=== PATIENT | female | born 1980 | race Hispanic/Latino ===

== ENCOUNTER 2022-03-14 19:55 | Emergency (ER) | payer OTHER, SELFPAY ==
[2022-03-14 21:24] LABS: #Basophils 0.1 10x3/uL (0.0-0.2); #Eosinphils 0.2 10x3/uL (0.0-0.5); #Neutrophils 11.7 10x3/uL (1.5-8.4); %Basophils 0.4 % (0.0-2.0); %Eosinophils 1.5 % (0.0-6.0); %Lymphocytes 15.7 % (18.0-47.0); %Monocytes 6.5 % (0.0-10.0); %Neutrophils 75.4 % (40.0-75.0); Hemoglobin 12.5 g/dL (12.0-15.5); Mean Corpuscular HGB CONC 33.8 g/dL (32.0-36.0); Mean Corpuscular Volume 85.8 fl (81.6-98.3); Mean Platelet Volume 10.1 fl (7.4-10.4); Platelet Count 335 10x3/uL (150-450); RBC Distribution Width 13.9 % (11.5-14.5); Red Blood Cell (RBC) Count 4.31 10x6/uL (3.90-5.03); White Blood Cell (WBC) Count 15.6 10x3/uL (3.5-10.5)
[2022-03-14 21:31] LABS: BHCG - Serum Negative (NEGATIVE); Pregs Control Background? CLEAR/WHITE (CLR/WHITE); Pregs Control Bar Appear? YES (CONTROL BAR)
[2022-03-14 21:39] LABS: ALT (SGPT) 22 U/L (8-55); AST (SGOT) 22 U/L (5-34); Albumin 4.6 g/dL (3.5-5.0); Alkaline Phosphatase 99 U/L (40-110); Anion Gap 17 mmol/L (10-20); BUN (Urea Nitrogen) 19 mg/dL (7.0-18.7); Bilirubin, Total 0.5 mg/dL (0.2-1.2); Calc. Creatinine Clearance 0 mL/min (70-130); Calcium 10.4 mg/dL (7.8-10.44); Carbon Dioxide 21 mmol/L (22-29); Chloride 104 mmol/L (98-107); Estimated GFR 27; Glucose 81 mg/dL (70-105); Protein, Total 8.6 g/dL (6.0-8.3); Sodium 138 mmol/L (136-145)
[2022-03-14] MEDS ORDERED: Ondansetron PF 4 MG/2 ML Vial ONE (23:26)
[2022-03-14] MEDS ORDERED: Morphine 4 MG/ML VIAL ONE (23:26)
[2022-03-14] MEDS ORDERED: Mag-Al Plus 1200 MG/1200 MG/120 MG/30 ML UDCUP ONE (23:48)
[2022-03-15] MEDS ORDERED: Meclizine HCl 25 MG TAB ONE (00:22)
[2022-03-15] MEDS ORDERED: Morphine 4 MG/ML VIAL ONE (01:19)
[2022-03-15 01:40] LABS: Anion Gap 16 mmol/L (10-20); BUN (Urea Nitrogen) 19 mg/dL (7.0-18.7); Calc. Creatinine Clearance 0 mL/min (70-130); Calcium 9.3 mg/dL (7.8-10.44); Carbon Dioxide 19 mmol/L (22-29); Chloride 108 mmol/L (98-107); Estimated GFR 31; Glucose 87 mg/dL (70-105); Lipase 13 U/L (8-78); Potassium 3.8 mmol/L (3.5-5.1); Sodium 139 mmol/L (136-145)
[2022-03-15 01:46] LABS: Troponin I Less than 0.010 ng/mL (< 0.028)
[2022-03-15 03:32] LABS: SARS-CoV-2 NAA Rapid Test DETECTED (NotDetected)
[2022-03-15 04:00] LABS: Bilirubin 1+ (Negative); Blood, Urine 10 (Negative); Clarity Slightly Cloudy (Clear); Glucose, Urine (Dipstick) Normal (Negative); Ketone, Urine Negative (Negative); Leukocyte 25 (Negative); Nitrite Negative (Negative); Protein, Urine (Dipstick) 30 mg/dl (Neg-Trace); Specific Gravity, Urine 1.025 (1.002-1.036)
[2022-03-15 04:17] LABS: Bacteria/HPF 2+ HPF (None Seen); Mucous/LPF 1+ LPF (<2+); RBC/HPF 0-3 HPF (0-3); Squamous Epithelial 21-50 HPF (0-3)
[2022-03-15] MEDS ORDERED: Iopamidol 370 76% 100 ML VIAL ONE (09:50)
== END 2022-03-15 06:15 | disposition home or self-care (01) ==
LOC: CSHERS 19:55
DX: U07.1 COVID-19 (principal); R07.9 Chest pain, unspecified; I12.9 Hypertensive chronic kidney disease with stage 1 through stage 4 chronic kidney disease, or unspecified chronic kidney disease; N18.4 Chronic kidney disease, stage 4 (severe)
CPT/HCPCS: 36415; 71045; 71275; 80048; 80053; 81003; 81015; 83690; 84484; 84703; 85025; 85379; 93005; 96374; 96375; 96376; J2270; J2405; Q9967